=== PATIENT | female | born 1975 | race Hispanic/Latino ===

== ENCOUNTER 2019-03-09 22:52 | Emergency (ER) | payer SELFPAY ==
--- NOTE | 2019-03-09 23:25 | ER ---
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 No Narcotics per pt request, pt stated she is in recovery. Transition of care: patient was not received from another setting of care. Onset of symptoms was March 09, 2019. Risk Assessment: Do you want to hurt yourself or someone else? Patient reports no desire to harm self or others. Initial Sepsis Screen: Does the patient meet any 2 criteria? No. Patient's initial sepsis screen is negative. Does the patient have a suspected source of infection? No. Patient's initial sepsis screen is negative. Care prior to arrival: None. 23:08 Method Of Arrival: Ambulatory ak1 23:08 Acuity: JENNIFER 4 ak1 Triage Assessment: 23:11 General: Appears uncomfortable, Behavior is cooperative. 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 - Social history:: Smoking status: Patient uses tobacco products, smokes one-half pack cigarettes per day, vapes too. - Ebola Screening: : No symptoms or risks identified at this time. Screenin:52 Abuse screen: Denies threats or abuse. Denies injuries from another. Nutritional wh screening: No deficits noted. Tuberculosis screening: No symptoms or risk factors identified. Fall Risk None identified. Assessment: 23:49 General: Appears in no apparent distress. uncomfortable. Pain: Complains of pain in wh right ear Pain does not radiate. Pain currently is 5 out of 10 on a pain scale. Neuro: Level of Consciousness is awake, alert, obeys commands, Oriented to person, place, time, situation, Appropriate for age. Cardiovascular: Capillary refill < 3 seconds. Respiratory: Airway is patent Respiratory effort is even, unlabored, Respiratory pattern is regular, symmetrical. GI: Abdomen is flat, non-distended. : No signs and/or symptoms were reported regarding the genitourinary system. EENT: Right ear swollen. Derm: Skin is intact, is healthy with good turgor, Skin is pink, warm \T\ dry. normal. Musculoskeletal: Range of motion: intact in all extremities. Vital Signs: 23:08 BP 118 / 79; Pulse 92; Resp 18; Temp 97.4; Pulse Ox 99% on R/A; Weight 81.65 kg (R); ak1 Height 5 ft. 4 in. (162.56 cm) (R); Pain 10/10; 03/10 00:13 BP 113 / 80; Pulse 75; Resp 18; Pulse Ox 99% on R/A; wh 03/09 23:08 Body Mass Index 30.90 (81.65 kg, 162.56 cm) ak1 ED Course: 03/09 22:58 Patient arrived in ED. ag3 23:01 Max Wilson MD is Attending Physician. agustin 23:04 Moise Woods, JOSE is Primary Nurse. mg2 23:09 Triage completed. ak1 23:11 Arm band placed on Patient placed in an exam room, on a stretcher, on pulse oximetry, ak1 Patient notified of wait time. 23:23 Melyssa Garcia MD is Referral Physician. agustin 23:52 Patient has correct armband on for positive identification. Bed in low position. Call wh light in reach. Side rails up X 1. Pulse ox on. NIBP on. 23:53 No provider procedures requiring assistance completed. Patient did not have IV access wh during this emergency room visit. 23:53 Dr Wilson at bedside with placement of ear wick on R Ear. wh Administered Medications: 23:25 CANCELLED (Patient Refused): [place] 10 mg-325 mg 1 tabs PO once fc 23:46 Drug: Rocephin (cefTRIAXone) 1 grams Route: IM; Site: right gluteus; 03/10 00:17 Follow up: Response: No adverse reaction 03/09 23:46 Drug: Cortisporin Drops 4 drops Route: Otic; Site: right ear; 23:46 Drug: Bactrim (160 mg-800 mg (DS) 1 tablet Route: PO; 03/10 00:16 Follow up: Response: No adverse reaction 03/09 23:47 Drug: Motrin 800 mg Route: PO; 03/10 00:16 Follow up: Response: No adverse reaction Point of Care Testing: Blood Glucose: 00:12 Blood Glucose: 123 mg/dL; Ranges: Outcome: 03/09 23:25 Discharge ordered by . agustin 03/10 00:17 Discharged to home ambulatory, with family. Condition: good Discharge instructions given to patient, Instructed on discharge instructions, follow up and referral plans. medication usage, POC Ear Infection Demonstrated understanding of instructions, follow-up care, medications, POC Prescriptions given X 3. 00:18 Patient left the ED. Signatures: Max Wilson MD MD cha Krenek, Amber, RN RN ak1 Elisabeth Terrazas Moise Woods RN RN mg2 Gomez, Alice ag3 Chretien, Felicia RN
--- NOTE | 2019-03-09 23:26 | EDPHYS ---
Physician Documentation [facility] Name: Isabel Oden Age: 43 yrs Sex: Female : 1975 Arrival Date: 03/09/2019 Time: 22:58 Bed 24 Private MD: ED Physician Max Wilson HPI: 03/09 23:20 This 43 yrs old Female presents to ER via Ambulatory with complaints of Ear agustin Pain. 23:20 The patient presents with drainage, pain, swelling, tenderness. The complaints affect agustin the right ear. Onset: The symptoms/episode began/occurred 3 day(s) ago. Modifying factors: The symptoms are alleviated by covering ear, the symptoms are aggravated by pulling on ears, touching. Associated signs and symptoms: Pertinent positives:. Severity of symptoms: At their worst the symptoms were moderate in the emergency department the symptoms are unchanged. The patient has not experienced similar symptoms in the past. 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 - Social history:: Smoking status: Patient uses tobacco products, smokes one-half pack cigarettes per day, vapes too. - Ebola Screening: : No symptoms or risks identified at this time. ROS: 23:21 Constitutional: Negative for fever, chills, and weight loss, Eyes: Negative for injury, agustin pain, redness, and discharge, Neck: Negative for injury, pain, and swelling, Cardiovascular: Negative for chest pain, palpitations, and edema, Respiratory: Negative for shortness of breath, cough, wheezing, and pleuritic chest pain, Abdomen/GI: Negative for abdominal pain, nausea, vomiting, diarrhea, and constipation, Back: Negative for injury and pain, : Negative for injury, bleeding, discharge, and swelling, MS/Extremity: Negative for injury and deformity, Skin: Negative for injury, rash, and discoloration, Neuro: Negative for headache, weakness, numbness, tingling, and seizure, Psych: Negative for depression, anxiety, suicide ideation, homicidal ideation, and hallucinations, Allergy/Immunology: Negative for hives, rash, and allergies, Endocrine: Negative for neck swelling, polydipsia, polyuria, polyphagia, and marked weight changes, Hematologic/Lymphatic: Negative for swollen nodes, abnormal bleeding, and unusual bruising. 23:21 ENT: Positive for drainage from ear(s), ear pain. Exam: 23:21 Constitutional: This is a well developed, well nourished patient who is awake, alert, agustin and in no acute distress. Head/Face: Normocephalic, atraumatic. Eyes: Pupils equal round and reactive to light, extra-ocular motions intact. Lids and lashes normal. Conjunctiva and sclera are non-icteric and not injected. Cornea within normal limits. Periorbital areas with no swelling, redness, or edema. Neck: Trachea midline, no thyromegaly or masses palpated, and no cervical lymphadenopathy. Supple, full range of motion without nuchal rigidity, or vertebral point tenderness. No Meningismus. Chest/axilla: Normal chest wall appearance and motion. Nontender with no deformity. No lesions are appreciated. Cardiovascular: Regular rate and rhythm with a normal S1 and S2. No gallops, murmurs, or rubs. Normal PMI, no JVD. No pulse deficits. Respiratory: Lungs have equal breath sounds bilaterally, clear to auscultation and percussion. No rales, rhonchi or wheezes noted. No increased work of breathing, no retractions or nasal flaring. Abdomen/GI: Soft, non-tender, with normal bowel sounds. No distension or tympany. No guarding or rebound. No evidence of tenderness throughout. Back: No spinal tenderness. No costovertebral tenderness. Full range of motion. Skin: Warm, dry with normal turgor. Normal color with no rashes, no lesions, and no evidence of cellulitis. MS/ Extremity: Pulses equal, no cyanosis. Neurovascular intact. Full, normal range of motion. Neuro: Awake and alert, GCS 15, oriented to person, place, time, and situation. Cranial nerves II-XII grossly intact. Motor strength 5/5 in all extremities. Sensory grossly intact. Cerebellar exam normal. Normal gait. Psych: Awake, alert, with orientation to person, place and time. Behavior, mood, and affect are within normal limits. 23:21 ENT: Ear canal(s): erythema, purulent discharge, that is minimal, in the right canal, swelling, TM's: erythema, that is mild. Vital Signs: 23:08 BP 118 / 79; Pulse 92; Resp 18; Temp 97.4; Pulse Ox 99% on R/A; Weight 81.65 kg (R); ak1 Height 5 ft. 4 in. (162.56 cm) (R); Pain 10; 03/10 00:13 BP 113 / 80; Pulse 75; Resp 18; Pulse Ox 99% on R/A; wh 03/09 23:08 Body Mass Index 30.90 (81.65 kg, 162.56 cm) ak1 Procedures: 03/09 23:29 Performed ear wick placed in right ear without diffuclty. [facility] MDM: 23:02 Patient medically screened. [facility] 23:28 Data reviewed: vital signs, nurses notes, lab test result(s). [facility] 03/09 23:19 Order name: Blood Glucose Level; Complete Time: 23:48 [facility] Administered Medications: 23:25 CANCELLED (Patient Refused): [place] 10 mg-325 mg 1 tabs PO once 23:46 Drug: Rocephin (cefTRIAXone) 1 grams Route: IM; Site: right gluteus; 03/10 00:17 Follow up: Response: No adverse reaction 03/09 23:46 Drug: Cortisporin Drops 4 drops Route: Otic; Site: right ear; 23:46 Drug: Bactrim (160 mg-800 mg (DS) 1 tablet Route: PO; 03/10 00:16 Follow up: Response: No adverse reaction 03/09 23:47 Drug: Motrin 800 mg Route: PO; 03/10 00:16 Follow up: Response: No adverse reaction Point of Care Testing: Blood Glucose: 00:12 Blood Glucose: 123 mg/dL; Ranges: Critical Glucose Levels:Adult <50 mg/dl or >400 mg/dl <40 mg/dl or >180 mg/dl Disposition: 03/09/19 23:25 Discharged to Home. Impression: Otitis externa, Otitis externa in other diseases classified elsewhere, Otitis externa in other diseases classified elsewhere, right ear. - Condition is Stable. - Discharge Instructions: Ear Drops, Adult, Otitis Externa, Otitis Externa, [id number], Ear Drops, Adult, [id number]. - Prescriptions for Ibuprofen 600 mg Oral Tablet - take 1 tablet by ORAL route every 6 hours As needed take with food; 20 tablet. Bactrim DS 800- 160 mg Oral Tablet - take 1 tablet by ORAL route every 12 hours for 10 days; 20 tablet. Ciprodex 0.3- 0.1 % Otic Drops, Suspension - instill 4 drop by OTIC route every 12 hours for 7 days , for ears ONLY; 1 Container. - Medication Reconciliation Form, Thank You Letter, Antibiotic Education, Prescription Opioid Use, Work release form form. - Follow up: Private Physician; When: 2 - 3 days; Reason: Recheck today's complaints, Continuance of care, Re-evaluation by your physician. Follow up: Melyssa Garcia MD; When: 2 - 3 days; Reason: Recheck today's complaints, Re-evaluation by your physician. - Problem is new. - Symptoms have improved. Signatures: Max Wilson MD MD cha Krenek, Amber, RN RN Elisabeth Joel Felicia RN Corrections: (The following items were deleted from the chart) 03/09 23:25 23:19 [place] 10 mg-325 mg 1 tabs PO once ordered. agustin shah 03/10 00:18 03/09 23:25 03/09/2019 23:25 Discharged to Home. Impression: Otitis externa; Otitis wh externa in other diseases classified elsewhere; Otitis externa in other diseases classified elsewhere, right ear. Condition is Stable. Forms are Medication Reconciliation Form, Thank You Letter, Antibiotic Education, Prescription Opioid Use. Follow up: Private Physician; When: 2 - 3 days; Reason: Recheck today's complaints, Continuance of care, Re-evaluation by your physician. Follow up: Melyssa Garcia; When: 2 - 3 days; Reason: Recheck today's complaints, Re-evaluation by your physician. Problem is new. Symptoms have improved. agustin
[2019-03-09] MEDS ORDERED: NEOMY/POLY/HC 1% OTIC DROPS ONE (23:48)
[2019-03-09] MEDS ORDERED: SMZ./TMP. 800/160 MG TABLET ONE (23:49)
[2019-03-09] MEDS ORDERED: IBUPROFEN 400 MG TAB ONE (23:49)
[2019-03-09] MEDS ORDERED: CEFTRIAXONE 1000 MG/VIAL ONE (23:49)
[2019-03-09] MEDS ORDERED: WATER FOR INJ,STERILE 10 ML ONE (23:54)
== END 2019-03-10 00:18 | disposition home or self-care (01) ==
LOC: ER 22:52
DX: H60.91 Unspecified otitis externa, right ear (principal); J45.909 Unspecified asthma, uncomplicated; I10 Essential (primary) hypertension; F17.210 Nicotine dependence, cigarettes, uncomplicated
CPT/HCPCS: 82962; 96372; 99283

== ENCOUNTER 2020-05-25 16:14 | Emergency (ER) | payer SELFPAY ==
--- OUTSIDE RECORDS SUMMARY | 2020-05-25 16:16 | XMS REPORT | Continuity of Care Document ---
:1975 [address] [facility] t Address [address] [place] [address] Dr. Perez [address] [place] [id number] Care Team Providers Name Role Phone Unavailable Unavailable Unavailable Problems This patient has no known problems. Allergies, Adverse Reactions, Alerts This patient has no known allergies or adverse reactions. Medications This patient has no known medications. Procedures This patient has no known procedures. Results This patient has no known results.
[2020-05-25] MEDS ORDERED: NA CHLORIDE 0.9% 1,000 ML ONE (18:00)
[2020-05-25 18:09] LABS: Absolute Lymphocytes (CBC) 3.8 K/uL (0.7-4.9); Basophils % 0.8 % (0-1.3); Hematocrit 40.5 % (36.0-45.0); Lymphocytes % 30.6 % (15.3-44.8); MPV 8.7 fL (7.6-11.3); RBC Red Blood Cell Count 4.84 M/uL (3.86-4.86)
[2020-05-25] MEDS ORDERED: FOLIC ACID 5 MG/ML VIAL ONE (18:16)
[2020-05-25 18:29] LABS: ALT/SGPT 37 U/L (12-78); AST/SGOT 24 U/L (15-37); Albumin 3.4 g/dL (3.4-5.0); Alkaline Phosphatase 101 U/L (45-117); BUN Blood Urea Nitrogen 14 mg/dL (7-18); Bicarbonate 24 mmol/L (21-32); Bilirubin Direct < 0.1 mg/dL (0-0.2); Bilirubin Total 0.3 mg/dL (0.2-1.0); Glucose Level 165 mg/dL (74-106); Lipase 147 U/L (73-393); Magnesium 2.2 mg/dL (1.8-2.4); NT PRO-BNP 13 pg/mL (<125); Potassium 4.2 mmol/L (3.5-5.1); Protein, Total 8.2 g/dL (6.4-8.2); Sodium Level 139 mmol/L (136-145); Troponin (Emerg Dept Use Only) < 0.02 ng/mL (0.0-0.045)
--- NOTE | 2020-05-25 18:38 | RAD REPORT ---
EXAM DESCRIPTION: CT - [id number] - 05/25/2020 6:05 pm CLINICAL HISTORY: Pain;Weakness;Numbness/tingling COMPARISON: No comparisons TECHNIQUE: Axial 5 mm thick images of the head were obtained. Axial 2 mm thick images of the cervic al spine were obtained with sagittal and coronal reconstruction images generated and reviewed. All CT scans are performed using dose optimization technique as appropriate and may include automated exposure control or mA/KV adjustment according to patient size. FINDINGS: No intracranial hemorrhage, mass, edema or acute intracranial finding. No suspicion for ac [place] infarction. No extra-axial fluid collections. Mastoid air cells and paranasal sinuses are clear. No globe or orbit abnormality seen. Cervical body height and alignment are normal. No disk space narrowing. No fracture or acute bony abn ormality. Central canal detail is inherently limited. No paraspinal mass or hematoma. IMPRESSION: Negative CT head examination for acute or significant finding. Negative CT cervical spine examination for acute or significant finding.
[2020-05-25] MEDS ORDERED: ASPIRIN 81 MG CHEWABLE TABLET ONE (18:50)
--- NOTE | 2020-05-25 19:32 | EDPHYS ---
Physician Documentation [facility] Name: Isabel Oden Age: 44 yrs Sex: Female : 1975 Arrival Date: 05/25/2020 Time: 16:16 Bed 5 Private MD: ED Physician Max Wilson HPI: 05/25 17:57 This 44 yrs old Female presents to ER via Ambulatory with complaints of agustin Numbness in Fingers, Blurred Vision. 17:57 The patient's problem is reported as visual difficulty, weakness, in the right lower agustin extremity, in the left upper extremity. Onset: The symptoms/episode began/occurred 60 day(s) ago. Duration: The episode is continuous, the symptoms became worse. Context: the episode(s) was witnessed, by no one. The symptoms are alleviated by nothing. The symptoms are aggravated by nothing. Associated signs and symptoms: The patient has no apparent associated signs or symptoms. Severity of symptoms: At their worst the symptoms were mild in the emergency department the symptoms are unchanged. Patient's baseline: Neuro: alert and fully oriented. The patient has experienced similar episodes in the past, multiple times. SERICULTURIST: 18:40 LMP N/A - tw2 Historical: - Allergies: 16:25 No Known Allergies; ll1 - PMHx: 16:25 Hypertension; Asthma; Diabetes - NIDDM; ll1 - PSHx: 16:25 None; ll1 - Immunization history:: Flu vaccine is not up to date. - Social history:: Smoking status: Reported history of juuling and/or vaping. Patient denies any tobacco usage or history of. - Family history:: not pertinent. ROS: 17:57 Constitutional: Negative for fever, chills, and weight loss, Eyes: Negative for injury, agustin pain, redness, and discharge, ENT: Negative for injury, pain, and discharge, Neck: Negative for injury, pain, and swelling, Cardiovascular: Negative for chest pain, palpitations, and edema, Respiratory: Negative for shortness of breath, cough, wheezing, and pleuritic chest pain, Abdomen/GI: Negative for abdominal pain, nausea, vomiting, diarrhea, and constipation, Back: Negative for injury and pain, : Negative for injury, bleeding, discharge, and swelling, MS/Extremity: Negative for injury and deformity, Skin: Negative for injury, rash, and discoloration, Psych: Negative for depression, anxiety, suicide ideation, homicidal ideation, and hallucinations, Allergy/Immunology: Negative for hives, rash, and allergies, Endocrine: Negative for neck swelling, polydipsia, polyuria, polyphagia, and marked weight changes, Hematologic/Lymphatic: Negative for swollen nodes, abnormal bleeding, and unusual bruising. 17:57 Neuro: Positive for numbness, tingling, of the right arm and left arm. Exam: 17:57 Constitutional: This is a well developed, well nourished patient who is awake, alert, agustin and in no acute distress. Head/Face: Normocephalic, atraumatic. Eyes: Pupils equal round and reactive to light, extra-ocular motions intact. Lids and lashes normal. Conjunctiva and sclera are non-icteric and not injected. Cornea within normal limits. Periorbital areas with no swelling, redness, or edema. ENT: Nares patent. No nasal discharge, no septal abnormalities noted. Tympanic membranes are normal and external auditory canals are clear. Oropharynx with no redness, swelling, or masses, exudates, or evidence of obstruction, uvula midline. Mucous membranes moist. Neck: Trachea midline, no thyromegaly or masses palpated, and no cervical lymphadenopathy. Supple, full range of motion without nuchal rigidity, or vertebral point tenderness. No Meningismus. Chest/axilla: Normal chest wall appearance and motion. Nontender with no deformity. No lesions are appreciated. Respiratory: Lungs have equal breath sounds bilaterally, clear to auscultation and percussion. No rales, rhonchi or wheezes noted. No increased work of breathing, no retractions or nasal flaring. Abdomen/GI: Soft, non-tender, with normal bowel sounds. No distension or tympany. No guarding or rebound. No evidence of tenderness throughout. Back: No spinal tenderness. No costovertebral tenderness. Full range of motion. Skin: Warm, dry with normal turgor. Normal color with no rashes, no lesions, and no evidence of cellulitis. Neuro: Awake and alert, GCS 15, oriented to person, place, time, and situation. Cranial nerves II-XII grossly intact. Motor strength 5/5 in all extremities. Sensory grossly intact. Cerebellar exam normal. Normal gait. Psych: Awake, alert, with orientation to person, place and time. Behavior, mood, and affect are within normal limits. 17:57 Cardiovascular: Rate: tachycardic, Rhythm: regular, Pulses: Pulses are 4+ in bilateral radial, brachial, femoral, popliteal, posterior tibial and and dorsalis pedis arteries.. Heart sounds: normal, Edema: is not appreciated, JVD: is not appreciated. 18:02 Radiologist reports: see report agustin 19:35 Neck: no bruits. agustin 19:57 ECG was reviewed by the Attending Physician. kb Vital Signs: 16:23 BP 130 / 87; Pulse 105; Resp 18; Temp 97.9; Pulse Ox 100% ; Weight 97.98 kg; Height 5 ll1 ft. 4 in. (162.56 cm); Pain 5/10; 18:38 BP 100 / 76; Pulse 95; Resp 17; Pulse Ox 100% on R/A; tw2 19:30 BP 114 / 71; Pulse 82; Resp 16; Pulse Ox 99% on R/A; jb4 16:23 Body Mass Index 37.08 (97.98 kg, 162.56 cm) ll1 NIH Stroke Scale Scores: 19:35 NIHSS Score: 0 agustin MDM: 17:34 Patient medically screened. agustin 18:01 Differential diagnosis: CVA, TIA, paralysis, metabolic disorder. Data reviewed: vital agustin signs, nurses notes, lab test result(s), EKG, radiologic studies, CT scan, plain films. Data interpreted: monitor worker: rate is 105 beats/min, rhythm is regular, Pulse oximetry: on room air is 100 %. Test interpretation: by ED physician or midlevel provider: ECG, plain radiologic studies. Counseling: I had a detailed discussion with the patient and/or guardian regarding: the historical points, exam findings, and any diagnostic results supporting the discharge/admit diagnosis, the presence of at least one elevated blood pressure reading (>120/80) during this emergency department visit, lab results, radiology results, the need for outpatient follow up, for definitive care, an disulfurizer tender, a neurologist. 05/25 17:41 Order name: Basic Metabolic Panel; Complete Time: 19:16 agustin 05/25 17:41 Order name: CBC with Diff; Complete Time: 18:28 agustin 05/25 17:41 Order name: LFT's; Complete Time: 19:16 agustin 05/25 17:41 Order name: Magnesium; Complete Time: 19:16 [facility] 05/25 17:41 Order name: NT PRO-BNP; Complete Time: 19:16 [facility] 05/25 17:41 Order name: Troponin (emerg Dept Use Only); Complete Time: 19:16 [facility] 05/25 17:41 Order name: XRAY Chest (1 view) [facility] 05/25 17:42 Order name: Lipase; Complete Time: 19:16 [facility] 05/25 17:56 Order name: Sed Rate; Complete Time: 19:16 [facility] 05/25 17:56 Order name: CRP; Complete Time: 18:28 [facility] 05/25 18:29 Order name: Urine Culture [facility] 05/25 19:56 Order name: Urine Dipstick--Ancillary (enter results) [facility] 05/25 19:56 Order name: Urine --Ancillary (enter results) [facility] 05/25 17:41 Order name: EKG; Complete Time: 17:42 [facility] 05/25 17:41 Order name: Cardiac monitoring; Complete Time: 17:59 [facility] 05/25 17:41 Order name: EKG - Nurse/Tech; Complete Time: 19:57 [facility] 05/25 17:41 Order name: IV Saline Lock; Complete Time: 17:59 [facility] 05/25 17:41 Order name: Labs collected and sent; Complete Time: 17:59 [facility] 05/25 17:41 Order name: O2 Per Protocol; Complete Time: 17:59 [facility] 05/25 17:41 Order name: O2 Sat Monitoring; Complete Time: 17:59 [facility] 05/25 17:41 Order name: Urine Dipstick-Ancillary (obtain specimen); Complete Time: 19:56 [facility] 05/25 17:56 Order name: CT Head C Spine; Complete Time: 19:16 [facility] EC:57 Rate is 81 beats/min. Rhythm is regular. QRS [place] is Normal. AL interval is normal at kb 118 msec. QRS interval is normal at 92 msec. QT interval is normal at 374 msec. Administered Medications: 18:00 Drug: NS 0.9% 1000 ml Route: IV; Rate: 1 bolus; Site: right antecubital; em 20:04 Follow up: Response: No adverse reaction; IV Status: Order to discontinue infusion; IV jb4 Intake: 700ml 18:00 Drug: foLIC Acid 1 mg Route: IVPB; Site: right antecubital; em 18:38 Drug: Aspirin 162 mg Route: PO; em 19:04 Follow up: Response: No adverse reaction tw2 Disposition: 05/26 17:57 Co-signature as Attending Physician, Max Wilson MD I agree with the assessment and agustin plan of care. Disposition: 05/25/20 19:32 Discharged to Home. Impression: Weakness, Type 2 diabetes mellitus. - Condition is Stable. - Discharge Instructions: Type 2 Diabetes Mellitus, Diagnosis, Adult, Weakness, Weakness, [id number], Aspirin and Your Heart, Type 2 Diabetes Mellitus, Diagnosis, Adult, [id number]. - Prescriptions for Folic Acid 1 mg Oral Tablet - take 1 tablet by ORAL route once daily; 30 tablet. - Medication Reconciliation Form, Thank You Letter, Antibiotic Education, Prescription Opioid Use form. - Follow up: Private Physician; When: 2 - 3 days; Reason: Recheck today's complaints, Continuance of care, Re-evaluation by your physician. Follow up: Oswaldo Hunt; When: 2 - 3 days; Reason: Recheck today's complaints, Continuance of care, Re-evaluation by your physician. - Problem is new. - Symptoms have improved. NIH Stroke Scale - NIH Stroke Score Date: 05/25/2020 Time: 19:35 Total Score = 0 1a. Level of Consciousness (LOC) - 0(Alert) 1b. Level of Consciousness (LOC) (Year \T\ Age) - 0(Both) 1c. LOC Commands (Open \T\ Closes Eyes/Proof Technician Helper) - 0(Both) 2. Best Gaze (Lateral Gaze Paresis) - 0(Normal) 3. Visual Field Loss - 0(No visual loss) 4. Facial Palsy - 0(Normal) 5a. Left Arm: Motor (10-second hold) - 0(No drift) 5b. Right Arm: Motor (10-second hold) - 0(No drift) 6a. Left Leg: Motor (5-second hold - always test supine) - 0(No drift) 6b. Right Leg: Motor (5-second hold - always test supine) - 0(No drift) 7. Limb Ataxia (finger/nose \T\ heel/eagle - test with eyes open) - 0(Absent) 8. Sensory Loss (pinprick arms/legs/face) - 0(Normal) 9. Best Language: Aphasia (description/naming/reading) - 0(No aphasia) 10. Dysarthria (speech clarity - read or repeat words) - 0(Normal) 11. Extinction and Inattention (visual/tactile/auditory/spatial/personal) - 0(No abnormality) Initials: agustin Signatures: Dispatcher [employer] EDAZ Cherri Garcia, ALMAZ-C MOBILE UI/UX DESIGNER-Max Sheldon MD MD cha Munoz, Edgar, RN RN Leoncio Brody RN RN jb4 Eneida Villalta RN RN ll1 Prisca Whaley RN tw2 Corrections: (The following items were deleted from the chart) 05/25 18:01 17:42 Head Brain Wo Cont+CT.RAD.BRZ ordered. [facility] EDAZ 20:04 19:32 05/25/2020 19:32 Discharged to Home. Impression: Weakness; Type 2 jb4 diabetes mellitus. Condition is Stable. Discharge Instructions: Type 2 Diabetes Mellitus, Diagnosis, Adult, Weakness, Weakness, [id number], Aspirin and Your Heart, Type 2 Diabetes Mellitus, Diagnosis, Adult, Ghmg-vw-Vhlm. Prescriptions for Folic Acid 1 mg Oral Tablet - take 1 tablet by ORAL route once daily; 30 tablet. and Forms are Medication Reconciliation Form, Thank You Letter, Antibiotic Education, Prescription Opioid Use. Follow up: Private Physician; When: 2 - 3 days; Reason: Recheck today's complaints, Continuance of care, Re-evaluation by your physician. Follow up: Oswaldo Hunt; When: 2 - 3 days; Reason: Recheck today's complaints, Continuance of care, Re-evaluation by your physician. Problem is new. Symptoms have improved. agustin
--- NOTE | 2020-05-25 19:32 | ER ---
Nurse's Notes [facility] Name: Isabel Oden Age: 44 yrs Sex: Female : 1975 Arrival Date: 05/25/2020 Time: 16:16 Bed 5 Private MD: Diagnosis: Weakness;Type 2 diabetes mellitus Presentation: 05/25 16:23 Chief complaint: Patient states: Blurred vision and bilateral hand pain/numbness for 2 ll1 months, worse on left arm. Tumb pops and clicks into place at times. Pain below left shoulder area. Coronavirus screen: Client denies travel out of the [place] in the last 14 days. At this time, the client does not indicate any symptoms associated with coronavirus-19. Ebola Screen: Patient denies travel to an Ebola-affected area in the 21 days before illness onset. Initial Sepsis Screen: Does the patient meet any 2 criteria? HR > 90 bpm. No. Patient's initial sepsis screen is negative. Does the patient have a suspected source of infection? Yes: Bone or joint infection. Risk Assessment: Do you want to hurt yourself or someone else? Patient reports no desire to harm self or others. Onset of symptoms was March 25, 2020. 16:23 Method Of Arrival: Ambulatory ll1 16:23 Acuity: JENNIFER 3 ll1 OPTICAL ADVISOR: 18:40 LMP N/A - tw2 Historical: - Allergies: 16:25 No Known Allergies; ll1 - PMHx: 16:25 Hypertension; Asthma; Diabetes - NIDDM; ll1 - PSHx: 16:25 None; ll1 - Immunization history:: Flu vaccine is not up to date. - Social history:: Smoking status: Reported history of juuling and/or vaping. Patient denies any tobacco usage or history of. - Family history:: not pertinent. Screenin:18 Abuse screen: Denies threats or abuse. Nutritional screening: No deficits noted. tw2 Tuberculosis screening: No symptoms or risk factors identified. Fall Risk None identified. Assessment: 17:20 General: Appears in no apparent distress. obese, well groomed, Behavior is anxious. tw2 Pain: Complains of pain in Left shoulder and left hand. Neuro: Level of Consciousness is awake, alert, obeys commands, Oriented to person, place, time, situation, Reports blurred vision "off and on for 2 months, i went to a doctor in the [facility] clinic in [place] and they said maybe i can get a CT scan here. 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 Cardiovascular: Heart tones S1 S2 Patient's skin is warm and dry. Respiratory: Airway is patent Respiratory effort is even, unlabored, Respiratory pattern is regular, symmetrical, Breath sounds are clear bilaterally. GI: No signs and/or symptoms were reported involving the gastrointestinal system. : No signs and/or symptoms were reported regarding the genitourinary system. EENT: No signs and/or symptoms were reported regarding the EENT system. Derm:. Musculoskeletal: Reports pain in Left shoulder and Left hand and some tingling in my left hand and arm. 18:38 Reassessment: Patient appears in no apparent distress at this time. No changes from tw2 previously documented assessment. Patient and/or family updated on plan of care and expected duration. Pain level reassessed. Patient is alert, oriented x 3, equal unlabored respirations, skin warm/dry/pink. 19:15 Reassessment: Patient appears in no apparent distress at this time. Patient and/or jb4 family updated on plan of care and expected duration. Pain level reassessed. Patient is alert, oriented x 3, equal unlabored respirations, skin warm/dry/pink. PT reports left thumb pain, denies wanting pain medication, given and ICE pack per request. 20:03 Reassessment: Patient appears in no apparent distress at this time. Patient and/or jb4 family updated on plan of care and expected duration. Pain level reassessed. Patient is alert, oriented x 3, equal unlabored respirations, skin warm/dry/pink. Vital Signs: 16:23 BP 130 / 87; Pulse 105; Resp 18; Temp 97.9; Pulse Ox 100% ; Weight 97.98 kg; Height 5 ll1 ft. 4 in. (162.56 cm); Pain 5/10; 18:38 BP 100 / 76; Pulse 95; Resp 17; Pulse Ox 100% on R/A; tw2 19:30 BP 114 / 71; Pulse 82; Resp 16; Pulse Ox 99% on R/A; jb4 16:23 Body Mass Index 37.08 (97.98 kg, 162.56 cm) ll1 NIH Stroke Scale Scores: 19:35 NIHSS Score: 0 [facility] ED Course: 16:16 Patient arrived in ED. ds1 16:24 Triage completed. ll1 16:25 Arm band placed on. ll1 17:15 Placed in gown. Bed in low position. Call light in reach. Pulse ox on. NIBP on. tw2 17:17 Prisca Whaley, RN is Primary Nurse. tw2 17:33 Max Wilson MD is Attending Physician. agustin 17:55 Initial lab(s) drawn, by dc, sent to lab. Inserted saline lock: 20 gauge in right em antecubital area, using aseptic technique. Blood collected. 18:05 CT Head C Spine In Process Unspecified. EDMS 19:08 Report given to JOSE Galindo and JOSE Wilson. tw2 19:26 Primary Nurse role handed off by Prisca Whaley RN jb4 19:26 Leoncio Cabrera, RN is Primary Nurse. jb4 19:32 Oswaldo Hunt MD is Referral Physician. agustin 19:33 XRAY Chest (1 view) In Process Unspecified. EDMS 19:56 Urine Culture Sent. oe 20:03 No provider procedures requiring assistance completed. IV discontinued, intact, jb4 bleeding controlled, No redness/swelling at site. Pressure dressing applied. Administered Medications: 18:00 Drug: NS 0.9% 1000 ml Route: IV; Rate: 1 bolus; Site: right antecubital; em 20:04 Follow up: Response: No adverse reaction; IV Status: Order to discontinue infusion; IV jb4 Intake: 700ml 18:00 Drug: foLIC Acid 1 mg Route: IVPB; Site: right antecubital; em 18:38 Drug: Aspirin 162 mg Route: PO; em 19:04 Follow up: Response: No adverse reaction tw2 Intake: 20:04 IV: 700ml; Total: 700ml. jb4 Outcome: 19:32 Discharge ordered by . agustin 20:03 Discharged to home ambulatory. jb4 20:03 Condition: stable 20:03 Discharge instructions given to patient, Instructed on discharge instructions, follow up and referral plans. medication usage, Demonstrated understanding of instructions, follow-up care, medications, Prescriptions given X 1. 20:04 Patient left the ED. jb4 NIH Stroke Scale - NIH Stroke Score Date: 05/25/2020 Time: 19:35 Total Score = 0 1a. Level of Consciousness (LOC) - 0(Alert) 1b. Level of Consciousness (LOC) (Year \\T\\ Age) - 0(Both) 1c. LOC Commands (Open \\T\\ Closes Eyes/Partner) - 0(Both) 2. Best Gaze (Lateral Gaze Paresis) - 0(Normal) 3. Visual Field Loss - 0(No visual loss) 4. Facial Palsy - 0(Normal) 5a. Left Arm: Motor (10-second hold) - 0(No drift) 5b. Right Arm: Motor (10-second hold) - 0(No drift) 6a. Left Leg: Motor (5-second hold - always test supine) - 0(No drift) 6b. Right Leg: Motor (5-second hold - always test supine) - 0(No drift) 7. Limb Ataxia (finger/nose \\T\\ heel/eagle - test with eyes open) - 0(Absent) 8. Sensory Loss (pinprick arms/legs/face) - 0(Normal) 9. Best Language: Aphasia (description/naming/reading) - 0(No aphasia) 10. Dysarthria (speech clarity - read or repeat words) - 0(Normal) 11. Extinction and Inattention (visual/tactile/auditory/spatial/personal) - 0(No abnormality) Initials: agustin Signatures: Dispatcher [employer] Max Gramajo MD MD cha Munoz, Edgar, RN Meghann Naqvi ds1 Prisca Whaley RN RN tw2 Leoncio Cabrera, RN RN jb4 Arnulfo Perry Lynsay, RN RN ll1 Corrections: (The following items were deleted from the chart) 18:40 18:38 Pulse 95bpm; Resp 17bpm; Pulse Ox 100% RA; tw2 tw2
--- NOTE | 2020-05-25 20:05 | RAD REPORT ---
EXAM DESCRIPTION: RAD - Chest Single View - 05/25/2020 7:33 pm CLINICAL HISTORY: COUGH COMPARISON: February 2015 TECHNIQUE: AP portable chest image was obtained 05/25/2020 7:33 pm . FINDINGS: No focal lung parenchymal process. Interstitial pattern is accentuated by shallow inspirat ion. Heart and vasculature are normal. No measurable pleural effusion and no pneumothorax. No acute b maxine abnormality seen. No acute aortic findings suspected. IMPRESSION: No acute cardiopulmonary process. No suspicious change from comparison.
[2020-05-25 20:21] VITALS: TEMP 97.9
[2020-05-25 20:27] LABS: Urine Blood TRACE (NEG); Urine Glucose NEGATIVE (NEG); Urine Protein NEGATIVE (NEG)
[2020-05-25 20:28] VITALS: BP 114/71; O2SAT 99
--- NOTE | 2020-05-27 11:14 | EKG ---
Test Date: 2020-05-25 Test Time: 19:45:56 Speech Language Assistant: IZABELLA MEASUREMENT RESULTS: Intervals: Rate: 81 VT: 118 QRSD: 92 QT: 374 QTc: 434 [place]: P: 35 VT: 118 QRS: -28 T: 115 INTERPRETIVE STATEMENTS: Normal sinus rhythm Left ventricular hypertrophy with repolarization abnormality Inferior infarct, age undetermined Anterior infarct, age undetermined Abnormal ECG Compared to ECG 03/11/2015 10:31:45 Left ventricular hypertrophy now present Early repolarization now present Myocardial infarct finding now present Electronically Signed On 05-27-20 11:13:25 CDT by Wiley Cartagena
== END 2020-05-25 20:04 | disposition home or self-care (01) ==
LOC: ER 16:14
DX: E11.9 Type 2 diabetes mellitus without complications (principal); I10 Essential (primary) hypertension; Z87.891 Personal history of nicotine dependence
CPT/HCPCS: 36415; 70450; 71045; 72125; 80048; 80076; 81003; 81025; 83690; 83735; 83880; 84484; 85025; 85652; 86140; 87086; 87088; 93005; 96361; 96374; 99284; J7030

== ENCOUNTER 2021-01-07 11:06 | Emergency (ER) | payer SELFPAY ==
--- OUTSIDE RECORDS SUMMARY | 2021-01-07 11:08 | XMS REPORT | Continuity of Care Document ---
:1975 Author Organization [facility] t Address [address] [place] [address] Dr. Perez [address] [place] [id number] Care Team Providers Name Role Phone Unavailable Unavailable Unavailable Problems This patient has no known problems. Allergies, Adverse Reactions, Alerts This patient has no known allergies or adverse reactions. Medications This patient has no known medications. Procedures This patient has no known procedures. Results This patient has no known results.
--- NOTE | 2021-01-07 12:10 | ER ---
Nurse's Notes [facility] Name: Isabel Oden Age: 45 yrs Sex: Female : 1975 Arrival Date: 01/07/2021 Time: 11:08 Bed 23 Private MD: Diagnosis: Unspecified otitis externa, left ear;Otitis media, unspecified, right ear Presentation: 01/07 11:12 Chief complaint: Patient states: Been having saad ear infections for 3 days now, but ca1 this morning, the L side has been worse with pain and there's a know behind my L ear. Denies fever. Coronavirus screen: Client denies travel out of the [place] in the last 14 days. At this time, the client does not indicate any symptoms associated with coronavirus-19. Ebola Screen: Patient negative for fever greater than or equal to 101.5 degrees Fahrenheit, and additional compatible Ebola Virus Disease symptoms Patient denies exposure to infectious person. Patient denies travel to an Ebola-affected area in the 21 days before illness onset. No symptoms or risks identified at this time. Initial Sepsis Screen: Does the patient meet any 2 criteria? No. Patient's initial sepsis screen is negative. Does the patient have a suspected source of infection? No. Patient's initial sepsis screen is negative. Risk Assessment: Do you want to hurt yourself or someone else? Patient reports no desire to harm self or others. Onset of symptoms was January 07, 2021. 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 N/A - Depo-provera ca1 Historical: - Allergies: 11:16 No Known Allergies; ca1 - Home Meds: 11:16 lisinopril 20 mg Oral tab 1 tab twice daily [Active]; buspirone 10 mg Oral tab 1 tab 2 ca1 times per day [Active]; trazodone 50 mg Oral tab 1 tab nightly [Active]; atorvastatin 40 mg oral tab 1 tab once daily [Active]; hydroxyzine HCl 50 mg Oral tab 1 tab 3 times daily [Active]; Seroquel 50 mg Oral tab 1 tab 3 times per day [Active]; Zoloft 150mg Oral once daily [Active]; metformin 500 mg Oral tab 1 tab 2 times per day [Active]; aspirin 81 mg Oral TbEC 1 tab once daily [Active]; - PMHx: 11:16 Asthma; Diabetes - NIDDM; Hypertension; High Cholesterol; Anxiety; Depression; ca1 - PSHx: 11:16 None; ca1 - Immunization history:: Client reports receiving the 2nd dose of the Covid vaccine, Client reports receiving the 1st dose of the Covid vaccine, Flu vaccine is up to date. - Social history:: Smoking status: Patient denies any tobacco usage or history of. Screenin:27 Abuse screen: Denies threats or abuse. Nutritional screening: No deficits noted. ll1 Tuberculosis screening: No symptoms or risk factors identified. Fall Risk Total Fortune Fall Scale indicates No Risk (0-24 pts). Assessment: 11:28 General: Appears in no apparent distress. Behavior is calm, cooperative, appropriate ll1 for age. Pain: Complains of pain in L ear Quality of pain is described as aching, Pain began 2-3 days ago. Neuro: No deficits noted. Cardiovascular: No deficits noted. Respiratory: No deficits noted. EENT: Ear canal clear on right ear and left ear Reports pain in both ears. 12:01 Reassessment: ECP at bedside discussing care with patient. zb 12:17 Reassessment: d/c instructions given. gait even and steady upon discharge. no questions zb at this time from patient. Vital Signs: 11:12 BP 116 / 65; Pulse 84; Resp 16 S; Temp 97.2(TE); Pulse Ox 99% on R/A; Weight 90.72 kg ca1 (R); Height 5 ft. 4 in. (162.56 cm) (R); Pain 10/10; 12:18 BP 118 / 66; Pulse 85; Resp 16; Pulse Ox 100% on R/A; zb 11:12 Body Mass Index 34.33 (90.72 kg, 162.56 cm) ca1 ED Course: 11:08 Patient arrived in ED. as 11:13 Triage completed. ca1 11:16 Arm band placed on right wrist. ca1 11:27 Eneida Villalta, RN is Primary Nurse. ll1 11:27 Arm band placed on Patient placed in an exam room, on a stretcher. ll1 11:27 Patient has correct armband on for positive identification. Bed in low position. Call ll1 light in reach. Side rails up X 1. Cardiac monitoring not applicable on this patient. 11:33 Hammad Zuluaga NP is PHCP. pm1 11:33 Max Wilson MD is Attending Physician. pm1 12:00 Primary Nurse role handed off by Eneida Villalta RN zb 12:00 Sharda Bird RN is Primary Nurse. zb 12:18 No provider procedures requiring assistance completed. Patient did not have IV access zb during this emergency room visit. Administered Medications: No medications were administered Outcome: 12:09 Discharge ordered by . pm1 12:18 Discharged to home ambulatory. zb 12:18 Condition: stable 12:18 Discharge instructions given to patient, Instructed on discharge instructions, follow up and referral plans. medication usage, Demonstrated understanding of instructions, follow-up care, medications, Prescriptions given X 3. 12:18 Patient left the ED. zb Signatures: Lisa Dukes as Hammad Zuluaga NP SENIOR COST ANALYST pm1 Ariella Addison RN RN ca1 Eneida Villalta RN RN 1 Sharda Bird RN RN zb
--- NOTE | 2021-01-07 12:10 | EDPHYS ---
Physician Documentation [facility] Name: Isabel Oden Age: 45 yrs Sex: Female : 1975 Arrival Date: 01/07/2021 Time: 11:08 Bed 23 Private MD: ED Physician Max Wilson HPI: 01/07 12:14 This 45 yrs old Female presents to ER via Ambulatory with complaints of Ear pm1 Pain. 12:14 The patient presents with pain. The complaints affect the right ear and left ear. pm1 Onset: The symptoms/episode began/occurred 3 day(s) ago. Modifying factors: The symptoms are alleviated by covering ear, the symptoms are aggravated by air to left ear. Associated signs and symptoms: Pertinent negatives:. Severity of symptoms: in the emergency department the symptoms are worse. The patient has not experienced similar symptoms in the past. The patient has not recently seen a physician. 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 N/A - Depo-provera ca1 Historical: - Allergies: 11:16 No Known Allergies; ca1 - Home Meds: 11:16 lisinopril 20 mg Oral tab 1 tab twice daily [Active]; buspirone 10 mg Oral tab 1 tab 2 ca1 times per day [Active]; trazodone 50 mg Oral tab 1 tab nightly [Active]; atorvastatin 40 mg oral tab 1 tab once daily [Active]; hydroxyzine HCl 50 mg Oral tab 1 tab 3 times daily [Active]; Seroquel 50 mg Oral tab 1 tab 3 times per day [Active]; Zoloft 150mg Oral once daily [Active]; metformin 500 mg Oral tab 1 tab 2 times per day [Active]; aspirin 81 mg Oral TbEC 1 tab once daily [Active]; - PMHx: 11:16 Asthma; Diabetes - NIDDM; Hypertension; High Cholesterol; Anxiety; Depression; ca1 - PSHx: 11:16 None; ca1 - Immunization history:: Client reports receiving the 2nd dose of the Covid vaccine, Client reports receiving the 1st dose of the Covid vaccine, Flu vaccine is up to date. - Social history:: Smoking status: Patient denies any tobacco usage or history of. ROS: 12:14 Constitutional: Negative for fever, chills, and weight loss. pm1 12:14 Cardiovascular: Negative for chest pain, palpitations, and edema, Respiratory: Negative for shortness of breath, cough, wheezing, and pleuritic chest pain, Abdomen/GI: Negative for abdominal pain, nausea, vomiting, diarrhea, and constipation, MS/Extremity: Negative for injury and deformity, Skin: Negative for injury, rash, and discoloration. 12:14 Neuro: Negative for headache, weakness, numbness, tingling, and seizure. 12:14 ENT: Positive for ear pain, Negative for drainage from ear(s), sore throat. 12:14 Neck: Positive for swollen nodes, of the left lateral aspect of neck, Negative for injury or acute deformity, pain with movement. Exam: 12:14 Constitutional: This is a well developed, well nourished patient who is awake, alert, pm1 and in no acute distress. Head/Face: Normocephalic, atraumatic. Eyes: Pupils equal round and reactive to light, extra-ocular motions intact. Lids and lashes normal. Conjunctiva and sclera are non-icteric and not injected. Cornea within normal limits. Periorbital areas with no swelling, redness, or edema. 12:14 Back: No spinal tenderness. No costovertebral tenderness. Full range of motion. Skin: Warm, dry with normal turgor. Normal color with no rashes, no lesions, and no evidence of cellulitis. MS/ Extremity: Pulses equal, no cyanosis. Neurovascular intact. Full, normal range of motion. 12:14 ENT: External ear(s): are unremarkable, Ear canal(s): swelling, that is minimal, of the left canal, TM's: bulging, on the right, erythema, that is mild, on the right, Mouth: is normal, no acute changes, Lips: normal, Oral mucosa: normal, pink and intact, moist, Posterior pharynx: is normal, airway is patent, no erythema, no exudate, no peritonsilar mass, no pooling of secretions, no swelling, no acute changes. 12:14 Neck: ROM/movement: is normal, Lymph nodes: lymphadenopathy is appreciated, anterior cervical nodes. 12:14 Cardiovascular: Exam negative for acute changes, Rate: normal, Rhythm: regular, Pulses: no pulse deficits are appreciated, Edema: is not appreciated. 12:14 Respiratory: Exam negative for acute changes, respiratory distress, shortness of breath. 12:14 Neuro: Exam negative for acute changes, Orientation: is normal, Mentation: is normal, Motor: is normal, moves all fours. Vital Signs: 11:12 BP 116 / 65; Pulse 84; Resp 16 S; Temp 97.2(TE); Pulse Ox 99% on R/A; Weight 90.72 kg ca1 (R); Height 5 ft. 4 in. (162.56 cm) (R); Pain 10/10; 12:18 BP 118 / 66; Pulse 85; Resp 16; Pulse Ox 100% on R/A; zb 11:12 Body Mass Index 34.33 (90.72 kg, 162.56 cm) ca1 MDM: 11:35 Patient medically screened. agustin 12:08 Data reviewed: vital signs. Data interpreted: Pulse oximetry: on room air is 99 %. pm1 Interpretation: normal. Counseling: I had a detailed discussion with the patient and/or guardian regarding: the historical points, exam findings, and any diagnostic results supporting the discharge/admit diagnosis, the need for outpatient follow up, to return to the emergency department if symptoms worsen or persist or if there are any questions or concerns that arise at home. 12:14 ED course: Patient does not want any pain medications here due to driving to and from pm1 ER. Administered Medications: No medications were administered Disposition: 01/08 09:59 Co-signature as Attending Physician, Max Wilson MD I agree with the assessment and [facility] plan of care. Disposition: 01/07/21 12:09 Discharged to Home. Impression: Unspecified otitis externa, left ear, Otitis media, unspecified, right ear. - Condition is Stable. - Discharge Instructions: Otitis Media, Adult, Otitis Externa, Ear Drops, Adult, [id number]. - Prescriptions for Cortisporin 3.5- 10,000-1 mg/mL-unit/mL-% Otic solution - instill 4 drop by OTIC route every 6 hours for 10 days Dispense suspension; 10 milliliter. Tylenol- Codeine #3 300-30 mg Oral Tablet - take 2 tablets by ORAL route every 4-6 hours As needed; 20 tablet. Augmentin 875- 125 mg Oral Tablet - take 1 tablet by ORAL route every 12 hours for 10 days; 20 tablet. - Medication Reconciliation Form, Thank You Letter, Antibiotic Education, Prescription Opioid Use form. - Follow up: Emergency Department; When: As needed; Reason: Worsening of condition. Follow up: Private Physician; When: 2 - 3 days; Reason: Recheck today's complaints, Continuance of care, Re-evaluation by your physician. - Problem is new. - Symptoms have improved. Signatures: Max Wilson MD MD cha Marinas, Patrick, NP INTERN PRODUCT MARKETING MANAGER pm1 Ariella Addison RN RN ca1 Brown, Zipporah, RN RN zb Corrections: (The following items were deleted from the chart) 01/07 12:18 12:09 01/07/2021 12:09 Discharged to Home. Impression: Unspecified otitis externa, left zb ear; Otitis media, unspecified, right ear. Condition is Stable. Forms are Medication Reconciliation Form, Thank You Letter, Antibiotic Education, Prescription Opioid Use. Follow up: Emergency Department; When: As needed; Reason: Worsening of condition. Follow up: Private Physician; When: 2 - 3 days; Reason: Recheck today's complaints, Continuance of care, Re-evaluation by your physician. Problem is new. Symptoms have improved. pm1
[2021-01-07 13:14] VITALS: TEMP 97.2
[2021-01-07 13:15] VITALS: BP 118/66; O2SAT 100
== END 2021-01-07 12:18 | disposition home or self-care (01) ==
LOC: ER 11:06
DX: H60.92 Unspecified otitis externa, left ear (principal); H66.91 Otitis media, unspecified, right ear; I10 Essential (primary) hypertension; E11.9 Type 2 diabetes mellitus without complications; E78.00 Pure hypercholesterolemia, unspecified; F41.8 Other specified anxiety disorders; Z79.82 Long term (current) use of aspirin
CPT/HCPCS: 99282

== ENCOUNTER 2023-12-03 14:56 | Inpatient (IN) | payer OTHER, SELFPAY ==
--- NOTE | 2023-12-03 16:07 | RAD REPORT ---
EXAM DESCRIPTION: CT - Head Brain Wo Cont - 12/03/2023 3:53 pm CLINICAL HISTORY: Alteration of awareness/confusion COMPARISON: None TECHNIQUE: Computed axial tomography of the head was obtained. IV contrast was not requested. All CT scans are performed using dose optimization technique as appropriate and may include automated exposure control or mA/KV adjustment according to patient size. FINDINGS: An intracranial bleed is not seen The ventricles are normal in caliber No extra-axial fluid collection is noted. No significant hypodensity within the brain noted. . Small calcification left cerebellum may be relat ed to prior infection Fluid within the sinuses/ mastoids is not seen. IMPRESSION: No acute intracranial abnormality is seen If patient's symptoms persist MRI of the brain would be recommended
[2023-12-03] MEDS ORDERED: NA CHLORIDE 0.9% 1,000 ML ONE ×2 (16:27→17:56)
[2023-12-03 16:49] LABS: Absolute Basophils 0.1 K/uL (0-0.5); Absolute Lymphocytes (CBC) 2.2 K/uL (0.7-4.9); Absolute Neutrophil 14.6 K/uL (1.8-8.0); Basophils % 0.4 % (0-1.3); Eosinophils % 0.1 % (0-4.4); Hematocrit 45.3 % (36.0-45.0); Hemoglobin 15.2 g/dL (12.0-15.0); Lymphocytes % 12.4 % (15.3-44.8); MCHC 33.7 g/dL (32.0-36.0); MCV 95.1 fL (80-100); Monocytes % 5.5 % (3.3-12.3); Neutrophils % 81.6 % (41.7-73.7); Platelets 289 thou/uL (152-406); RBC Red Blood Cell Count 4.76 M/uL (3.86-4.86)
--- NOTE | 2023-12-03 16:50 | RAD REPORT ---
EXAM DESCRIPTION: Estefani Single View12/03/2023 4:24 pm CLINICAL HISTORY: Cough COMPARISON: 2019 FINDINGS: The lungs appear clear of acute infiltrate. The heart is normal size IMPRESSION: No acute abnormalities displayed
[2023-12-03 16:53] LABS: PTT, Activated Partial Thromb 30.3 SECONDS (24.3-36.9)
[2023-12-03 16:54] LABS: Protime INR 1.28
[2023-12-03 17:09] LABS: ALT/SGPT 55 U/L (13-56); AST/SGOT 74 U/L (15-37); Albumin 4.5 g/dL (3.4-5.0); Alkaline Phosphatase 89 U/L (45-117); Anion Gap 9.1 mEq/L (5.0-15.0); BUN Blood Urea Nitrogen 22 mg/dL (7-18); Bicarbonate 24 mEq/L (21-32); Bilirubin Direct 0.5 mg/dL (0-0.2); Bilirubin Indirect, Calculated 1.2 mg/dL (0.2-0.8); Bilirubin Total 1.7 mg/dL (0.2-1.0); Globulin 4.3 g/dL (2.3-3.5); Glomerular Filtration Rate 62 ml/min (=/>90); Glucose Level 100 mg/dL (74-106); Magnesium 2.2 mg/dL (1.6-2.4); NT PRO-BNP 87 pg/mL (<125); Potassium 3.1 mEq/L (3.5-5.1); Protein, Total 8.8 g/dL (6.4-8.2); Sodium Level 138 mEq/L (136-145); Troponin High Sensitivity 12.3 pg/mL (<58.9)
--- NOTE | 2023-12-03 17:17 | ER ---
Nurse's Notes [facility] Name: Isabel Oden Age: 48 yrs Sex: Female : 1975 Arrival Date: 12/03/2023 Time: 14:56 Bed 14 Private MD: Diagnosis: Altered mental status, unspecified;Hypokalemia;Elevated white blood cell count;Bipolar disorder, unspecified;Essential (primary) hypertension;Abuse of other non-psychoactive substances;Adverse effect of amphetamines Presentation: 12/02 15:18 Chief complaint: Pt's daughter states "they called the emergency department physician on her from her job because aa5 she wasn't acting right and the emergency department physician kept her overnight for intoxication". Rapid speech and restlessness noted during triage, pt is A\\T\\O x 4. Pt's daughter reports pt is not her baseline. Coronavirus screen: At this time, the client does not indicate any symptoms associated with coronavirus-19. Ebola Screen: Patient denies travel to an Ebola-affected area in the 21 days before illness onset. Initial Sepsis Screen: Does the patient meet any 2 criteria? No. Patient's initial sepsis screen is negative. Does the patient have a suspected source of infection? No. Patient's initial sepsis screen is negative. Risk Assessment: Do you want to hurt yourself or someone else? Patient reports no desire to harm self or others. Onset of symptoms was December 02, 2023. 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 - Infectious Disease History:: Denies. - Social history:: Smoking status: Patient reports the use of cigarette tobacco products, Patient uses alcohol, occasionally. Patient/guardian denies using street drugs. - Family history:: not pertinent. Screenin:[facility] ED Fall Risk Assessment (Adult) History of falling in the last 3 months, me1 including since admission No falls in past 3 months (0 pts) Confusion or Disorientation Yes (5 pts) Intoxicated or Sedated No (0 pts) Impaired Gait No (0 pts) Mobility Assist Device Used No (0 pt) Altered Elimination No (0 pt) Score/Fall Risk Level 0 - 2 = Low Risk Maintained a safe environment, Provided non-skid footwear, Hourly rounding (assess needs \\T\\ fall precautionary measures) done. Abuse screen: Denies threats or abuse. Nutritional screening: No deficits noted. Tuberculosis screening: No symptoms or risk factors identified. Assessment: 15:30 General: Appears uncomfortable, unkempt, well developed, well nourished, Behavior is me1 cooperative, anxious, restless, Reports not being able to remember things like she normally can. States she takes some psych meds but stopped taking them a couple of weeks ago because she cant afford them. Restless, anxious. Children at bedside report that patient is having visual and auditory hallucinations and that she has never done that in the past. Pain: Denies pain. Neuro: Level of Consciousness is awake, alert, obeys commands, Oriented to person, place, situation. Cardiovascular: Capillary refill < 3 seconds Patient's skin is warm and dry. Respiratory: Airway is patent Respiratory effort is even, unlabored, Respiratory pattern is regular, symmetrical. GI: No signs and/or symptoms were reported involving the gastrointestinal system. : Reports urinary frequency. EENT: No signs and/or symptoms were reported regarding the EENT system. Derm: Skin is intact, is healthy with good turgor, Skin is pink, warm \\T\\ dry. Musculoskeletal: No signs and/or symptoms reported regarding the musculoskeletal system. 20:14 General: patient refused hospital gown before going up to floor. . me1 20:19 General: Patient reports that she can provide urine sample now. Assisted to bathroom me1 and patient was unable to void. States she feels like she needs to urinate but cant. Straight cath done with 450 ml of dark yellow, cloudy urine. Tolerated well. . Vital Signs: 15:18 BP 149 / 116; Pulse 101; Resp 20 S; Temp 98.2(TE); Pulse Ox 96% on R/A; Weight 90.72 kg aa5 (R); Height 5 ft. 4 in. (R); 17:00 BP 156 / 99; Pulse 86; Resp 16; Pulse Ox 98% on R/A; me1 18:00 BP 163 / 102; Pulse 90; Resp 21; Pulse Ox 100% on R/A; me1 19:02 BP 154 / 98; Pulse 79; Resp 18; Pulse Ox 98% ; me1 19:30 BP 131 / 83; Pulse 94; Resp 19; Pulse Ox 100% on R/A; me1 20:37 BP 128 / 74; Pulse 92; Resp 16; Pulse Ox 100% on R/A; me1 15:18 Body Mass Index 34.33 (90.72 kg, 162.56 cm) aa5 ED Course: 14:59 Patient arrived in ED. mg5 15:09 Max Wilson MD is Attending Physician. [facility] 15:18 Arm band placed on. aa5 15:22 Triage completed. aa5 15:30 Patient has correct armband on for positive identification. Bed in low position. Call [facility] light in reach. Side rails up X 1. Provided Education on: POC. Verbalized understanding. . 15:53 CT Head Brain wo Cont In Process Unspecified. EDMS 16:10 Madelyn Murguia, RN is Primary Nurse. me1 16:26 XRAY Chest (1 view) In Process Unspecified. EDMS 16:26 Basic Metabolic Panel Sent. me1 16:26 CBC with Diff Sent. me1 16:26 LFT's Sent. me1 16:26 Magnesium Sent. me1 16:26 NT PRO-BNP Sent. me1 16:26 PT-INR Sent. me1 16:26 Troponin HS Sent. me1 16:26 AMMONIA Sent. me1 16:26 Initial lab(s) drawn, by ok, sent to lab. Inserted saline lock: 22 gauge in right ok1 antecubital area, using aseptic technique. 17:16 Arun Valencia is Hospitalizing Provider. agustin 17:37 First set of blood cultures drawn. me1 17:40 Lactate w/ 2H reflex if indic. Sent. me1 17:40 Blood Culture Adult (2) Sent. me1 17:45 Second set of blood cultures drawn. me1 17:53 Urine collected: straight cath specimen, cloudy, kelly colored. me1 17:53 Test, Urine Sent. me1 17:53 Urinalysis w/ reflexes Sent. me1 17:53 Urine Drug Screen Sent. me1 18:41 EKG done, by ED staff, reviewed by Max Wilson MD. as6 20:04 No provider procedures requiring assistance completed. me1 20:20 Patient admitted, IV remains in place. me1 Administered Medications: 16:30 Drug: NS 0.9% IV 1000 ml IV at 1 bolus Per protocol; 1000 mL bolus Route: IV; Rate: 1 me1 bolus; Site: right antecubital; 19:29 Follow up: Response: No adverse reaction; IV Status: Completed infusion; IV Intake: me1 1000ml 17:29 CANCELLED (Duplicate Order): [id number] mg PO once agustin 17:29 CANCELLED (Duplicate Order): mg PO once agustin 18:02 Drug: NS 0.9% IV 1000 ml IV at 1 bolus Per protocol; 1000 mL bolus Route: IV; Rate: 1 me1 bolus; Site: right antecubital; 19:28 Follow up: Response: No adverse reaction; IV Status: Completed infusion; IV Intake: me1 1000ml 18:03 Drug: Rocephin IV 1 grams IV at per protocol once; Given slow IV push per pharmacy me1 instructions Route: IV; Rate: per protocol; Site: right antecubital; 19:28 Follow up: Response: No adverse reaction; IV Status: Completed infusion me1 18:03 Drug: Potassium PO Effervescent Tablet 50 mEq PO once; dissolve in 4 ounces of water or me1 juice Route: PO; 19:29 Follow up: Response: No adverse reaction me1 18:03 Drug: Norvasc PO 5 mg PO once Route: PO; me1 19:28 Follow up: Response: No adverse reaction; Blood pressure is lowered me1 18:03 Drug: Lisinopril PO 10 mg PO once Route: PO; me1 19:28 Follow up: Response: No adverse reaction; Blood pressure is lowered me1 Medication: 15:30 VIS not applicable for this client. me1 Intake: 19:28 IV: 1000ml; Total: 1000ml. me1 19:29 IV: 1000ml; Total: 2000ml. me1 Outcome: 17:17 Decision to Hospitalize by Provider. agustin 20:21 Admitted to Tele accompanied by tech, via wheelchair, room 426, with chart, Report me1 called to faxed at 20:04. Receipt confirmed with Shi 20:21 Condition: stable 20:21 Instructed on the need for admit, 20:40 Patient left the ED. me1 Signatures: Dispatcher [employer] Max Gramajo MD MD cha Calderon, Audri, JOSE RN aa5 Alfonzo Cervantes RN RN as6 Madelyn Murguia RN RN me1 GomesVanessa mg5 Corrections: (The following items were deleted from the chart) 15:23 15:18 Chief complaint: Pt's daughter states "they called the emergency department physician on her from her job aa5 because she wasn't acting right and the emergency department physician kept her overnight for intoxication". Rapid speech and restlessness noted during triage, pt is A\\T\\O x 4. Pt's daughter reports pt is not her baseline. aa5 19:30 19:02 BP 163 / 102; Pulse 90bpm; Resp 21bpm; Pulse Ox 100% RA; ok1 ok1 19:59 18:00 BP 131 / 83; Pulse 94bpm; Resp 19bpm; Pulse Ox 100% RA; ok1 me1 20:14 15:18 Chief complaint: Pt's daughter states "they called the emergency department physician on her from her job me1 because she wasn't acting right and the emergency department physician kept her overnight for intoxication". Rapid speech and restlessness noted during triage, pt is A\\T\\O x 4. Pt's daughter reports pt is not her baseline. aa5
--- NOTE | 2023-12-03 17:17 | EDPHYS ---
Physician Documentation [facility] Name: Isabel Oden Age: 48 yrs Sex: Female : 1975 Arrival Date: 12/03/2023 Time: 14:56 Bed 14 Private MD: ED Physician Max Wilson HPI: 12/02 16:22 This 48 yrs old Female presents to ER via Ambulatory with complaints of agustin Confusion, Altered Mental Status. 16:22 The patient presents with agitation, confusion, trouble concentrating. Onset: The agustin symptoms/episode began/occurred 3 day(s) ago. Possible causes: CVA or TIA, drug use, alcohol, head injury, low blood sugar, seizure. Associated signs and symptoms: The patient has no apparent associated signs or symptoms. Patient's baseline: Neuro: alert and fully oriented. The patient has experienced similar episodes in the past, a few times. 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 - Infectious Disease History:: Denies. - Social history:: Smoking status: Patient reports the use of cigarette tobacco products, Patient uses alcohol, occasionally. Patient/guardian denies using street drugs. - Family history:: not pertinent. ROS: 16:22 Constitutional: Negative for fever, chills, and weight loss, Eyes: Negative for injury, agustin pain, redness, and discharge, ENT: Negative for injury, pain, and discharge, Neck: Negative for injury, pain, and swelling, Cardiovascular: Negative for chest pain, palpitations, and edema, Respiratory: Negative for shortness of breath, cough, wheezing, and pleuritic chest pain, Abdomen/GI: Negative for abdominal pain, nausea, vomiting, diarrhea, and constipation, Back: Negative for injury and pain, : Negative for injury, bleeding, discharge, and swelling, MS/Extremity: Negative for injury and deformity, Skin: Negative for injury, rash, and discoloration, Neuro: Negative for headache, weakness, numbness, tingling, and seizure, Allergy/Immunology: Negative for hives, rash, and allergies, Endocrine: Negative for neck swelling, polydipsia, polyuria, polyphagia, and marked weight changes, Hematologic/Lymphatic: Negative for swollen nodes, abnormal bleeding, and unusual bruising, 16:22 Psych: Positive for anxiety, auditory hallucinations, visual hallucinations, Exam: 16:22 Constitutional: This is a well developed, well nourished patient who is awake, alert, agustin and in no acute distress. Head/Face: Normocephalic, atraumatic. Eyes: Pupils equal round and reactive to light, extra-ocular motions intact. Lids and lashes normal. Conjunctiva and sclera are non-icteric and not injected. Cornea within normal limits. Periorbital areas with no swelling, redness, or edema. ENT: Nares patent. No nasal discharge, no septal abnormalities noted. Tympanic membranes are normal and external auditory canals are clear. Oropharynx with no redness, swelling, or masses, exudates, or evidence of obstruction, uvula midline. Mucous membranes moist. Neck: Trachea midline, no thyromegaly or masses palpated, and no cervical lymphadenopathy. Supple, full range of motion without nuchal rigidity, or vertebral point tenderness. No Meningismus. Chest/axilla: Normal chest wall appearance and motion. Nontender with no deformity. No lesions are appreciated. Cardiovascular: Regular rate and rhythm with a normal S1 and S2. No gallops, murmurs, or rubs. Normal PMI, no JVD. No pulse deficits. Respiratory: Lungs have equal breath sounds bilaterally, clear to auscultation and percussion. No rales, rhonchi or wheezes noted. No increased work of breathing, no retractions or nasal flaring. Abdomen/GI: Soft, non-tender, with normal bowel sounds. No distension or tympany. No guarding or rebound. No evidence of tenderness throughout. Back: No spinal tenderness. No costovertebral tenderness. Full range of motion. Skin: Warm, dry with normal turgor. Normal color with no rashes, no lesions, and no evidence of cellulitis. MS/ Extremity: Pulses equal, no cyanosis. Neurovascular intact. Full, normal range of motion. Neuro: Awake and alert, GCS 15, oriented to person, place, time, and situation. Cranial nerves II-XII grossly intact. Motor strength 5/5 in all extremities. Sensory grossly intact. Cerebellar exam normal. Normal gait. Psych: Awake, alert, with orientation to person, place and time. Behavior, mood, and affect are within normal limits. 17:31 Neck: Trachea: is midline with no obvious abnormalities, no acute changes, agustin ROM/movement: is normal, no acute changes, Lymph nodes: no appreciated lymphadenopathy, 18:58 ECG was reviewed by the Attending Physician. [facility] Vital Signs: 15:18 BP 149 / 116; Pulse 101; Resp 20 S; Temp 98.2(TE); Pulse Ox 96% on R/A; Weight 90.72 kg aa5 (R); Height 5 ft. 4 in. (R); 17:00 BP 156 / 99; Pulse 86; Resp 16; Pulse Ox 98% on R/A; me1 18:00 BP 163 / 102; Pulse 90; Resp 21; Pulse Ox 100% on R/A; me1 19:02 BP 154 / 98; Pulse 79; Resp 18; Pulse Ox 98% ; me1 19:30 BP 131 / 83; Pulse 94; Resp 19; Pulse Ox 100% on R/A; me1 20:37 BP 128 / 74; Pulse 92; Resp 16; Pulse Ox 100% on R/A; me1 15:18 Body Mass Index 34.33 (90.72 kg, 162.56 cm) aa5 MDM: 15:09 Patient medically screened. [facility] 16:26 Differential Diagnosis: CVA, electrolyte abnormality, alcohol intoxication, agustin hypoglycemia, intracranial bleed, TIA, UTI, volume depletion. Data reviewed: vital signs, nurses notes, lab test result(s), EKG, radiologic studies, CT scan. Consideration of Admission/Observation Escalation of care including admission/observation considered. I considered the following discharge prescriptions or medication management in the emergency department Medications were administered in the Emergency Department. See MAR. Test considered but Not performed: MRI: no mri brain. Care significantly affected by the following chronic conditions: Diabetes, Hypertension, Obesity, asthma, bipolar, high chlesterol. 12/02 15:14 Order name: Basic Metabolic Panel; Complete Time: 17:18 [facility] 12/02 15:14 Order name: CBC with Diff; Complete Time: 17:10 [facility] 12/02 15:14 Order name: LFT's; Complete Time: 17:18 [facility] 12/02 15:14 Order name: Magnesium; Complete Time: 17:18 12/02 15:14 Order name: NT PRO-BNP; Complete Time: 17:18 12/02 15:14 Order name: PT-INR; Complete Time: 17:10 12/02 15:14 Order name: Troponin HS; Complete Time: 17:18 12/02 15:14 Order name: Acetaminophen; Complete Time: 17:18 12/02 15:14 Order name: ETOH Level; Complete Time: 16:52 12/02 15:14 Order name: Test, Urine; Complete Time: 19:06 12/02 15:14 Order name: Ptt, Activated; Complete Time: 17:10 12/02 15:14 Order name: Salicylate; Complete Time: 17:10 12/02 15:14 Order name: Urinalysis w/ reflexes; Complete Time: 19:06 12/02 15:14 Order name: Urine Drug Screen; Complete Time: 19:06 12/02 15:50 Order name: AMMONIA; Complete Time: 16:52 12/02 17:12 Order name: Blood Culture Adult (2) 12/02 17:12 Order name: Lactate w/ 2H reflex if indic.; Complete Time: 19:06 12/02 18:11 Order name: Urinalysis w/ reflexes EDMS 12/02 18:11 Order name: CBC with Automated Diff EDMS 12/02 18:11 Order name: CBC with Automated Diff EDMS 12/02 18:11 Order name: Comprehensive Metabolic Panel EDMS 12/02 18:11 Order name: Comprehensive Metabolic Panel EDMS 12/02 15:14 Order name: XRAY Chest (1 view); Complete Time: 16:52 12/02 15:14 Order name: CT Head Brain wo Cont; Complete Time: 16:19 12/02 15:14 Order name: EKG; Complete Time: 15:14 12/02 15:14 Order name: Cardiac monitoring; Complete Time: 18:41 12/02 15:14 Order name: EKG - Nurse/Tech; Complete Time: 18:41 12/02 15:14 Order name: IV Saline Lock; Complete Time: 16:26 12/02 15:14 Order name: Labs collected and sent; Complete Time: 16:26 12/02 15:14 Order name: O2 Per Protocol; Complete Time: 16:26 [facility] 12/02 15:14 Order name: O2 Sat Monitoring; Complete Time: 16:26 [facility] 12/02 15:14 Order name: Suicide Screening ([place]); Complete Time: 16:27 [facility] 12/02 16:52 Order name: Blood Pressure Recheck; Complete Time: 17:07 [facility] EC:58 Rate is 73 beats/min. Rhythm is regular. QRS [place] is Normal. GA interval is normal. QRS agustin interval is normal. QT interval is normal. No Q waves. T waves are Normal. No ST changes noted. Clinical impression: NSR w/ Non-specific ST/T Changes and No evidence of ischemia. Interpreted by me. Reviewed by me. Administered Medications: 16:30 Drug: NS 0.9% IV 1000 ml IV at 1 bolus Per protocol; 1000 mL bolus Route: IV; Rate: 1 me1 bolus; Site: right antecubital; 19:29 Follow up: Response: No adverse reaction; IV Status: Completed infusion; IV Intake: me1 1000ml 17:29 CANCELLED (Duplicate Order): [id number] mg PO once [facility] 17:29 CANCELLED (Duplicate Order): [id number] mg PO once [facility] 18:02 Drug: NS 0.9% IV 1000 ml IV at 1 bolus Per protocol; 1000 mL bolus Route: IV; Rate: 1 me1 bolus; Site: right antecubital; 19:28 Follow up: Response: No adverse reaction; IV Status: Completed infusion; IV Intake: me1 1000ml 18:03 Drug: Rocephin IV 1 grams IV at per protocol once; Given slow IV push per pharmacy me1 instructions Route: IV; Rate: per protocol; Site: right antecubital; 19:28 Follow up: Response: No adverse reaction; IV Status: Completed infusion me1 18:03 Drug: Potassium PO Effervescent Tablet 50 mEq PO once; dissolve in 4 ounces of water or me1 juice Route: PO; 19:29 Follow up: Response: No adverse reaction me1 18:03 Drug: Norvasc PO 5 mg PO once Route: PO; me1 19:28 Follow up: Response: No adverse reaction; Blood pressure is lowered me1 18:03 Drug: Lisinopril PO 10 mg PO once Route: PO; me1 19:28 Follow up: Response: No adverse reaction; Blood pressure is lowered me1 Disposition Summary: 12/03/23 17:17 Hospitalization Ordered Notes: Hospitalization Status: Observation agustin Provider: Arun Valencia cha Location: Telemetry/MedSurg (observation) agustin Condition: Fair agustin Problem: new agustin Symptoms: have improved agustin Bed/Room Type: Standard agustin Room Assignment: 426(12/03/23 19:44) km Diagnosis - Altered mental status, unspecified agustin - Hypokalemia agustin - Elevated white blood cell count agustin - Bipolar disorder, unspecified agustin - Essential (primary) hypertension agustin - Abuse of other non-psychoactive substances agustin - Adverse effect of amphetamines agustin Discharge Instructions: - Discharge Summary Sheet agustin - Type 2 Diabetes Mellitus, Diagnosis, Adult agustin - Hypertension, Adult agustin - Hypertension, Adult, [id number] agustin - Diabetes Mellitus and Nutrition, Adult agustin - How to Take Your Blood Pressure, [id number] agustin - Managing Your Hypertension agustin - Managing Bipolar Disorder agustin - Supporting Someone With Bipolar Disorder agustin Forms: - Medication Reconciliation Form agustin - SBAR form agustin - Leadership Thank You Letter agustin Signatures: Dispatcher [employer] Max Gramajo MD MD cha Calderon, Audri, RN RN aa5 Madelyn Murguia RN RN me1 Elvira Webb f Corrections: (The following items were deleted from the chart) 15:15 15:14 BASIC METABOLIC PANEL+C.LAB.BRZ ordered. EDMS EDMS 15:15 15:14 CBC+H.LAB.BRZ ordered. EDMS EDMS 15:15 15:14 HEPATIC FUNCTION+C.LAB.BRZ ordered. EDMS EDMS 15:15 15:14 MAGNESIUM+C.LAB.BRZ ordered. EDMS EDMS 15:15 15:14 PROBNP+C.LAB.BRZ ordered. EDMS EDMS 15:15 15:14 PROTIME (+INR)+COAG.LAB.BRZ ordered. EDMS EDMS 15:15 15:14 Troponin High Sensitivity+C.LAB.BRZ ordered. EDMS EDMS 15:15 15:14 ACETAMINOPHEN+C.LAB.BRZ ordered. EDMS EDMS 15:15 15:14 ETHANOL+C.LAB.BRZ ordered. EDMS EDMS 15:15 15:14 Test, Urine+UC.LAB.BRZ ordered. EDMS EDMS 15:15 15:14 PTT, ACTIVATED+COAG.LAB.BRZ ordered. EDMS EDMS 15:15 15:14 SALICYLATE+C.LAB.BRZ ordered. EDMS EDMS 15:15 15:14 Urinalysis+U.LAB.BRZ ordered. EDMS EDMS 15:15 15:14 URINE DRUG SCREEN+UC.LAB.BRZ ordered. EDMS EDMS 17: 17:21 Norvasc PO 10 mg PO once ordered. agustin agustin 17:29 17:21 Lisinopril PO 20 mg PO once ordered. agustin agustin 19:44 17:17 agustin kmf
[2023-12-03] MEDS ORDERED: AMLODIPINE 5 MG TAB ONE (17:55)
[2023-12-03] MEDS ORDERED: CEFTRIAXONE 1000 MG/VIAL ONE (17:55)
[2023-12-03] MEDS ORDERED: POTASSIUM 25 MEQ EFFERV TAB ONE (17:56)
[2023-12-03] MEDS ORDERED: lisinopriL 10 MG TAB ONE (17:56)
[2023-12-03 18:06] LABS: Specific Gravity 1.023 (1.005-1.030)
--- NOTE | 2023-12-03 18:06 | P.HP ---
Certification for Inpatient Patient admitted to: Inpatient With expected LOS: >2 Midnights Practitioner: I am a practitioner with admitting privileges, knowledge of patient current condition, hospital course, and medical plan of care. Services: Services provided to patient in accordance with Admission requirements found in Title 42 Section 412.3 of the Code of Federal Regulations Patient History Date of Service: 12/03/23 Reason for admission: AMS History of Present Illness: 48 yrs old Female with past medical history of Anxiety; Asthma; Depression, Diabetes , Hypertension; hyperlipidemia and bipolar disorder Came in with altered mental status and confusion which has been going on for the last 3 days . Patient is a poor historian hence most of the history is obtained from chart review and after talking to the ER physician and family member at the bedside. Apparently patient got agitated and confused 2 days ago and was arrested and Police station as she was confused and agitated while at work. Patient denies any focal weakness. Denies any fever or chills. No nausea vomiting or diarrhea. Patient has history of drug abuse with marijuana Synthetic . Drinks alcohol occasionally. Denies any dysuria No sick contacts Patient was assessed in the ER and was admitted for further management. CT of the head was negative for any acute changes. She was noted to have leukocytosis as well Allergies No Known Drug Allergies Allergy (Unverified 01/30/15 04:22) Unknown Home medications list reviewed: Yes - Past Medical/Surgical History Past Medical History: Reviewed- Non-Contributory Past Surgical History: Reviewed- Non-Contributory - Family History Family History: Reviewed- Non-Contributory - Social History Smoking Status: Current some day smoker Review of Systems is unable to be obtained Physical Examination - Vital Signs Temperature: 98.6 F Blood Pressure: 112/68 Pulse: 78 Respirations: 18 Pulse Ox (%): 96 - Physical Exam General: Alert, In no apparent distress, Confused HEENT: Atraumatic, Normocephalic, PERRLA Neck: Supple, 2+ carotid pulse no bruit Respiratory: Clear to auscultation bilaterally, Normal air movement Cardiovascular: Regular rate/rhythm, Normal S1 S2 Capillary refill: <2 Seconds Gastrointestinal: Soft and benign, Non-distended, W/out hepatosplenomegaly, No tenderness, No masses Musculoskeletal: No clubbing, No swelling Integumentary: No rashes, No breakdown Neurological: Normal strength at 5/5 x4 extr, Cranial nerves 3-12 intact, Normal reflexes 2+, Other (Confused ) Lymphatics: No axilla or inguinal lymphadenopathy - Studies Laboratory Data (last 24 hrs) 12/03/23 12/03/23 12/03/23 16:21 16:21 16:21 WBC 17.90 H Hgb 15.2 H Hct 45.3 H Plt Count 289 PT 14.0 H INR 1.28 APTT 30.3 Sodium 138 Potassium 3.1 L BUN 22 H Creatinine 1.11 H Glucose 100 Magnesium 2.2 Total Bilirubin 1.7 H AST 74 H ALT 55 Alkaline Phosphatase 89 Assessment and Plan - Problems (Diagnosis) (1) Acute encephalopathy Current Visit: Yes Status: Acute Plan: Acute metabolic/toxic encephalopathy 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 Will get an ammonia level Leukocytosis Monitor CBC in a.m. Start on antibiotic empirically Will get an x-ray chest and UA Will stop antibiotic if cultures are negative Substance abuse Advised cessation GI/DVT prophylaxis Advanced directive full code - Advance Directives Does patient have a Living Will: No Does patient have a Durable POA for Healthcare: No - Code Status/Comfort Care Code Status: Full Code Time Spent Managing Pts Care (In Minutes): 48
[2023-12-03 18:11] LABS: Specific Gravity 1.023 (1.005-1.030); Sqamous Epithelial <5 /HPF (None Seen); Urine Bacteria None Seen /HPF (<20); Urine Bilirubin NEGATIVE (Negative); Urine Blood 1+ (Negative); Urine Clarity Extremely Turbid (Clear); Urine Color Yellow (Yellow); Urine Culture Reflex Order NOT NEEDED; Urine Glucose NEGATIVE (Negative); Urine Ketones 3+ (Negative); Urine Microscopic Reflex YN ORDER UMIC; Urine Mucus Slight /HPF (None Seen); Urine Nitrite NEGATIVE (Negative); Urine Protein 1+ (Negative); Urine RBC <5 /HPF (None Seen); Urine Urobilinogen Normal (Normal); Urine WBC <5 /HPF (<5); Urine pH 6.5 (5.0-7.0)
[2023-12-03 18:14] LABS: Barbiturates NEGATIVE (NEGATIVE); Benzodiazepines NEGATIVE (NEGATIVE); Cocaine NEGATIVE (NEGATIVE); METHAMPHETAM POSITIVE (NEGATIVE); Methadone NEGATIVE (NEGATIVE); Opiates NEGATIVE (NEGATIVE); Phencyclidine NEGATIVE (NEGATIVE); THC Cannibis NEGATIVE (NEGATIVE)
[2023-12-03] MEDS: INSULIN REGULAR (HUMAN) 100 UNIT/ML SQ SCH (21:00)
[2023-12-03] MEDS: CEFTRIAXONE 1,000 MG in NA CHLORIDE 0.9% 50 ML IVPB SCH (21:35)
[2023-12-03] MEDS: ENOXAPARIN 40 MG/0.4 ML SQ SCH (22:39)
[2023-12-03] MEDS: NA CHLORIDE 0.9% 1,000 ML IV SCH (22:40)
[2023-12-03] MEDS: LORazepam 2 MG/ML VIAL IV ONE (23:54)
[2023-12-04] MEDS ORDERED: HALOPERIDOL LACT 5 MG/ML INJ IV PRN (00:52)
[2023-12-04 01:03] VITALS: BMI 34.3
[2023-12-04] MEDS: QUETIAPINE 25 MG TAB PO SCH (01:07)
[2023-12-04 07:12] LABS: Absolute Basophils 0.1 K/uL (0-0.5); Absolute Eosinophils 0.1 K/uL (0-0.5); Absolute Lymphocytes (CBC) 3.7 K/uL (0.7-4.9); Absolute Monocytes 0.5 K/uL (0.1-1.3); Absolute Neutrophil 5.3 K/uL (1.8-8.0); Basophils % 0.7 % (0-1.3); Hematocrit 39.7 % (36.0-45.0); Hemoglobin 13.5 g/dL (12.0-15.0); Lymphocytes % 38.1 % (15.3-44.8); MCH 32.8 pg (27.0-35.0); MCV 96.5 fL (80-100); MPV 8.1 fL (7.6-11.3); Monocytes % 5.6 % (3.3-12.3); Neutrophils % 54.6 % (41.7-73.7); Nucleated Red Blood Cells % 0.3 % (0-0); Platelets 226 thou/uL (152-406); RBC Red Blood Cell Count 4.12 M/uL (3.86-4.86); Red Cell Distribution Width 14.3 % (12.1-15.2)
[2023-12-04 07:38] LABS: Albumin 3.1 g/dL (3.4-5.0); Albumin/Globulin Ratio 0.9 (1.1-1.8); Anion Gap 5.9 mEq/L (5.0-15.0); Bilirubin Total 1.1 mg/dL (0.2-1.0); Globulin 3.5 g/dL (2.3-3.5); Potassium 2.9 mEq/L (3.5-5.1); Protein, Total 6.6 g/dL (6.4-8.2)
[2023-12-04 09:21] VITALS: O2SAT 97
--- NOTE | 2023-12-04 09:24 | P.PN ---
Subjective Date of Service: 12/04/23 Chief Complaint: AMS Admitted for acute metabolic encephalopathy, confused, elevated liver enzymes, leukocytosis, empiric antibiotic Agitated, as needed medications, Seroquel for agitation, 97% on room air She denied uses substance abuse,, denied methamphetamine use - Physical Exam General: Alert, In no apparent distress, Confused HEENT: Atraumatic, Normocephalic, PERRLA Neck: Supple, 2+ carotid pulse no bruit Respiratory: Clear to auscultation bilaterally, Normal air movement Cardiovascular: Regular rate/rhythm, Normal S1 S2 Capillary refill: <2 Seconds Gastrointestinal: Soft and benign, Non-distended, W/out hepatosplenomegaly, No tenderness, No masses Musculoskeletal: No clubbing, No swelling Integumentary: No rashes, No breakdown Neurological: Normal strength at 5/5 x4 extr, Cranial nerves 3-12 intact, Normal reflexes 2+, alert and oriented x 3 Lymphatics: No axilla or inguinal lymphadenopathy Review of Systems Per HPI Physical Examination - Vital Signs Temperature: 97.6 F Blood Pressure: 119/62 Pulse: 72 Respirations: 18 Pulse Ox (%): 97 - Studies Laboratory Data (last 24 hrs) 12/03/23 12/03/23 12/03/23 16:21 16:21 16:21 WBC 17.90 H Hgb 15.2 H Hct 45.3 H Plt Count 289 PT 14.0 H INR 1.28 APTT 30.3 Sodium 138 Potassium 3.1 L BUN 22 H Creatinine 1.11 H Glucose 100 Magnesium 2.2 Total Bilirubin 1.7 H AST 74 H ALT 55 Alkaline Phosphatase 89 Assessment And Plan - Plan Assessment and Plan Acute metabolic/toxic encephalopathy improved 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 Will get an ammonia level Leukocytosis Monitor CBC in a.m. Start on antibiotic empirically Will get an x-ray chest and UA Will stop antibiotic if cultures are negative Substance abuse Advised cessation UA positive for amphetamines GI/DVT prophylaxis Advanced directive full code Discharge Plan: Home - Code Status/Comfort Care Code Status: Full Code Critical Care: No Time Spent Managing PTS Care (In Minutes): 35
[2023-12-04] MEDS: ACETAMINOPHEN 325 MG TABLET PO PRN (09:25)
[2023-12-04] MEDS: ONDANSETRON 4 MG/2 ML VIAL IV PRN (09:25)
[2023-12-04] MEDS: POTASSIUM 25 MEQ EFFERV TAB PO ONE (15:03)
[2023-12-04 16:46] VITALS: BP 119/62; TEMP 97.6
[2023-12-04] MEDS ORDERED: POTASSIUM 25 MEQ EFFERV TAB PO SCH (21:00)
--- NOTE | 2023-12-07 13:24 | P.DS ---
Discharge Date: 12/04/23 Disposition: ROUTINE DISCHARGE Discharge Condition: GOOD Reason for Admission: AMS Brief History of Present Illness: 48 yrs old Female with past medical history of Anxiety; Asthma; Depression, Diabetes , Hypertension; hyperlipidemia and bipolar disorder Came in with altered mental status and confusion which has been going on for the last 3 days . Patient is a poor historian hence most of the history is obtained from chart review and after talking to the ER physician and family member at the bedside. Apparently patient got agitated and confused 2 days ago and was arrested and Police station as she was confused and agitated while at work. Patient denies any focal weakness. Denies any fever or chills. No nausea vomiting or diarrhea. Patient has history of drug abuse with marijuana Synthetic . Drinks alcohol occasionally. Denies any dysuria No sick contacts Patient was assessed in the ER and was admitted for further management. CT of the head was negative for any acute changes. She was noted to have leukocytosis as well Hospital Course: Patient's clinical symptoms are improved. Patient doing much better. At this time, patient is stable for discharge home. Vital Signs/Physical Exam: Temp Pulse Resp BP Pulse Ox 97.6 F 72 18 119/62 97 12/04/23 16:40 12/04/23 16:40 12/04/23 16:40 12/04/23 16:40 12/04/23 16:40 General: Alert, In no apparent distress, Oriented x3 Laboratory Data at Discharge: WBC 9.70 thou/uL (4.3-10.9) 12/04/23 07:04 Hgb 13.5 g/dL (12.0-15.0) D 12/04/23 07:04 Hct 39.7 % (36.0-45.0) 12/04/23 07:04 Plt Count 226 thou/uL (152-406) 12/04/23 07:04 PT 14.0 SECONDS (9.5-12.5) H 12/03/23 16:21 INR 1.28 12/03/23 16:21 APTT 30.3 SECONDS (24.3-36.9) 12/03/23 16:21 Sodium 139 mEq/L (136-145) 12/04/23 07:04 Potassium 2.9 mEq/L (3.5-5.1) L 12/04/23 07:04 BUN 13 mg/dL (7-18) 12/04/23 07:04 Creatinine 0.71 mg/dL (0.55-1.02) 12/04/23 07:04 Glucose 80 mg/dL (74-106) 12/04/23 07:04 Magnesium 2.2 mg/dL (1.6-2.4) 12/03/23 16:21 Total Bilirubin 1.1 mg/dL (0.2-1.0) H 12/04/23 07:04 AST 52 U/L (15-37) H 12/04/23 07:04 ALT 42 U/L (13-56) 12/04/23 07:04 Alkaline Phosphatase 69 U/L (45-117) D 12/04/23 07:04 Home Medications: Amlodipine [Norvasc*] 5 mg PO DAILY 12/04/23 Lisinopril [Zestril] 10 mg PO DAILY 12/04/23 Metformin HCl [Glucophage*] 500 mg PO BIDWM 12/04/23 Potassium Chloride 10 meq PO DAILY #10 tab 12/04/23 Sertraline [Zoloft*] 50 mg PO DAILY 12/04/23 Trazodone [Desyrel*] 50 mg PO BEDTIME 12/04/23 New Medications: Potassium Chloride 10 meq PO DAILY #10 tab Physician Discharge Instructions: -DC IV and DC home -Follow-up with PCP in 1 to 2 weeks -Please call Dr. Weinberg at [phone] if any questions regarding hospital stay -Please call nursing station at [phone] if any nursing or medication questions -Return to the emergency room if symptoms worsen Diet: Regular Activity: Fall precautions Followup: NONE,NONE [Primary Care Provider] - Time spent managing pt's care (in minutes): 35
== END 2023-12-04 18:40 | disposition home or self-care (01) | DRG 92 ==
LOC: ER 14:56 → ERHOLD 18:07 → 4TH 20:14
PROVIDERS: ADMIT Family Medicine; ATTEND Hospitalist
DX: G92.8 Other toxic encephalopathy (principal); N17.9 Acute kidney failure, unspecified; I10 Essential (primary) hypertension; E11.9 Type 2 diabetes mellitus without complications; F31.9 Bipolar disorder, unspecified; E86.0 Dehydration; E87.6 Hypokalemia; E78.00 Pure hypercholesterolemia, unspecified; D72.829 Elevated white blood cell count, unspecified; F15.10 Other stimulant abuse, uncomplicated; D72.820 Lymphocytosis (symptomatic); J45.909 Unspecified asthma, uncomplicated; T43.625A Adverse effect of amphetamines, initial encounter; F17.210 Nicotine dependence, cigarettes, uncomplicated; R94.5 Abnormal results of liver function studies; Z79.899 Other long term (current) drug therapy
CPT/HCPCS: 36415; 70450; 71045; 80048; 80053; 80076; 80143; 80179; 80307; 81001; 81025; 82077; 82140; 82947; 83605; 83735; 83880; 84484; 85025; 85610; 85730; 87040; 93005; 94760; 96361; 96365; 99285; J0696; J1630; J1650; J2405; J7030